=== PATIENT | female | born 1985 | race Caucasian/White ===

== ENCOUNTER 2019-11-14 14:42 | Outpatient (CLI) | payer OTHER, SELFPAY ==
--- NOTE | ~2019-11-14 | CT_ITS ---
EXAMINATION: CT abdomen pelvis wo con EXAM DATE: 11/14/2019 15:10 INDICATION: Right flank pain. TECHNIQUE: Spiral CT of the abdomen and pelvis was performed without contrast. Axial, coronal and sag ittal images were reviewed. The dose-length product (DLP) for this examination was 194.72 mGy-cm. T he exposure was tailored according to patient size (auto mA exposure control), and iterative reconstr uction (ASIR) was used as additional dose reduction technique. Comparison is made to prior examinatio n from 01/13/2017. FINDINGS: Left pelvic calcifications consistent with phleboliths unchanged. No nephrolithiasis or hyd ronephrosis. There is an exophytic cyst off lower pole of the right kidney measuring 3.5 cm. The uter us is anteverted and morphologically normal. The bladder is unremarkable. The liver, spleen, adren al glands and pancreas are unremarkable. There are cholecystectomy clips. There is no retroperitone al or pelvic lymphadenopathy. The appendix is not positively visualized. There is no pericecal inflammatory change to suggest appe ndicitis. 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 There is expected amount of colonic stool. No free intraperitoneal gas. The heart is normal in size. There are no pericar dial or pleural effusions. The lung bases are unremarkable. The bones are unremarkable. IMPRESSION: 1. No nephrolithiasis, hydronephrosis or acute intra-abdominal findings. Reviewed, dictated and finalized at location A.
== END 2019-11-14 14:43 | disposition home or self-care (01) ==
PROVIDERS: PCP Physician Assistant; Visit Provider Physician Assistant
DX: R10.9 Unspecified abdominal pain (principal)
CPT/HCPCS: 74176